=== PATIENT | male | born 1990 | race Caucasian/White ===

== ENCOUNTER 2017-11-04 07:26 | Outpatient (CLI) | payer OTHER ==
[2017-11-04 08:04] LABS: BASOPHILS % (AUTO) 0.6 % (0.0-2.0); EOSINOPHILS # (AUTO) 0.1 K/uL (0.0-0.4); HEMATOCRIT 45.6 % (36-54); LYMPHOCYTES % (AUTO) 32.7 % (20.5-51.5); MEAN CORPUSCULAR HEMOGLOBIN 30 pg (27-31); MEAN CORPUSCULAR HGB CONC 35 % (32-36); MEAN CORPUSCULAR VOLUME 86 fL (79.0-98.0); MONOCYTES # (AUTO) 0.4 K/uL (0.0-1.0); MONOCYTES % (AUTO) 6.3 % (1.7-9.3); NEUTROPHILS # (AUTO) 3.7 K/uL (1.8-7.7); NEUTROPHILS % (AUTO) 59.4 % (40.0-70.0); PLATELET COUNT (AUTO) 231 K/uL (130-430); RED BLOOD CELL COUNT(AUTO) 5.28 MIL/uL (4.2-6.2); WHITE BLOOD COUNT (AUTO) 6.2 K/uL (4.8-10.8)
[2017-11-04 08:20] LABS: CALCIUM 9.1 mg/dL (8.4-11.0); POTASSIUM 4.4 mmol/L (3.5-5.1)
[2017-11-04 08:23] LABS: TOTAL BILIRUBIN 0.4 mg/dL (0.0-1.0)
[2017-11-04 08:24] LABS: ALBUMIN 4.4 g/dL (3.4-4.8); URIC ACID 5.6 mg/dL (2.4-7.0)
[2017-11-04 09:01] LABS: BILIRUBIN,URINE NEGATIVE (NEGATIVE); BLOOD, URINE NEGATIVE (NEGATIVE); CLARITY/URINE CLEAR (CLEAR); COLOR,URINE YELLOW (YELLOW); GLUCOSE,URINE NEGATIVE (NEGATIVE); KETONES,URINE NEGATIVE (NEGATIVE); LEUKOCYTE ESTERASE ,URINE TRACE (NEGATIVE); NITRITE, URINE NEGATIVE (NEGATIVE); PH,URINE 6.5 (5.0-8.0); PROTEIN URINE NEGATIVE (NEGATIVE); UROBILINOGEN,URINE 0.2 (0.2-1.0)
[2017-11-04 09:11] LABS: BACTERIA,URINE RARE /HPF (None Seen); MUCUS,URINE 1+ /LPF (None Seen); RBC,URINE 0-3 /HPF (0-3); WBC,URINE 0-3 /HPF (0-3)
[2017-11-05 06:06] LABS: HEMOGLOBIN A1C 5.1 % (4.8-5.6)
== END 2017-11-04 20:03 | disposition home or self-care (01) ==
LOC: SLB 07:26
PROVIDERS: ATTEND Internal Medicine
DX: Z00.00 Encounter for general adult medical examination without abnormal findings (principal)
CPT/HCPCS: 36415; 80053; 80061; 81000-TC; 82306; 82607; 83036; 84550-TC; 85025

== ENCOUNTER 2018-02-11 07:15 | Outpatient (CLI) | payer OTHER ==
[2018-02-11 09:59] LABS: ALBUMIN 4.4 g/dL (3.4-4.8); CALCIUM 9.9 mg/dL (8.4-11.0); CREATININE 0.85 mg/dL (0.55-1.30); POTASSIUM 4.5 mmol/L (3.5-5.1); THYROID STIMULATING HORMONE 1.87 uIu/mL (0.34-4.82); TOTAL BILIRUBIN 0.4 mg/dL (0.0-1.0)
== END 2018-02-11 21:16 | disposition home or self-care (01) ==
LOC: SLB 07:15
PROVIDERS: ATTEND Internal Medicine
DX: E78.5 Hyperlipidemia, unspecified (principal)
CPT/HCPCS: 36415; 80053; 80061; 84443-TC

== ENCOUNTER 2020-07-17 12:43 | Emergency (ER) | payer BC, OTHER ==
[~2020-07-17] VITALS: Ht 177.8 cm; Wt 72.6 kg
[2020-07-17 12:50] VITALS: BP_SYST 133
[2020-07-17 13:57] LABS: BASOPHILS % (AUTO) 0.3 % (0.0-2.0); EOSINOPHILS % (AUTO) 0.3 % (0.0-4.0); HEMATOCRIT 46.8 % (36-54); LYMPHOCYTES # (AUTO) 2.8 K/uL (1.0-5.5); LYMPHOCYTES % (AUTO) 37.3 % (20.5-51.5); MEAN CORPUSCULAR HEMOGLOBIN 30 pg (27-31); MEAN CORPUSCULAR HGB CONC 34 % (32-36); MEAN CORPUSCULAR VOLUME 88 fL (79.0-98.0); MONOCYTES # (AUTO) 0.3 K/uL (0.0-1.0); MONOCYTES % (AUTO) 4.2 % (1.7-9.3); NEUTROPHILS # (AUTO) 4.4 K/uL (1.8-7.7); NEUTROPHILS % (AUTO) 57.9 % (40.0-70.0); PLATELET COUNT (AUTO) 230 K/uL (130-430); RED BLOOD CELL COUNT(AUTO) 5.33 MIL/uL (4.2-6.2); RED CELL DISTRIBUTION WIDTH 13.1 % (9.0-15.0); WHITE BLOOD COUNT (AUTO) 7.6 K/uL (4.8-10.8)
[2020-07-17 14:02] LABS: CALCIUM 9.1 mg/dL (8.4-11.0); CREATININE 0.93 mg/dL (0.55-1.30); POTASSIUM 4.2 mmol/L (3.5-5.1)
[2020-07-17 14:05] LABS: PROTHROMBIN TIME 10.3 SECS (9.5-12.5)
[2020-07-17 14:07] LABS: ALBUMIN 4.4 g/dL (3.4-4.8); TOTAL BILIRUBIN 0.3 mg/dL (0.0-1.0)
[2020-07-17] MEDS ORDERED: NAPR-688 PO (14:07)
[2020-07-17] MEDS ORDERED: IOHEXOL 350 mgI/mL, 150 ML INFUS..BTL IV ONE (14:13)
[2020-07-17 14:54] LABS: BILIRUBIN,URINE NEGATIVE (NEGATIVE); BLOOD, URINE NEGATIVE (NEGATIVE); CLARITY/URINE CLEAR (CLEAR); COLOR,URINE YELLOW (YELLOW); GLUCOSE,URINE NEGATIVE (NEGATIVE); KETONES,URINE NEGATIVE (NEGATIVE); LEUKOCYTE ESTERASE ,URINE TRACE (NEGATIVE); NITRITE, URINE NEGATIVE (NEGATIVE); PH,URINE 7.5 (5.0-8.0); PROTEIN URINE NEGATIVE (NEGATIVE); UROBILINOGEN,URINE 0.2 (0.2-1.0)
[2020-07-17 15:25] VITALS: BP_SYST 134
[2020-07-17 15:39] LABS: BACTERIA,URINE None Seen /HPF (None Seen); RBC,URINE NONE SEEN /HPF (0-3)
== END 2020-07-17 15:25 | disposition home or self-care (01) ==
LOC: SED 12:43
DX: R09.1 Pleurisy (principal); F17.200 Nicotine dependence, unspecified, uncomplicated; Z71.6 Tobacco abuse counseling
CPT/HCPCS: 36415; 71275; 76376; 80053; 81000; 85025; 85379; 85610; 85730; 99285; Q9967